=== PATIENT | female | born 1985 | race Caucasian/White ===

== ENCOUNTER 2016-03-25 09:38 | Emergency (ER) | payer MEDICAID ==
[~2016-03-25] VITALS: Wt 49.5 kg
--- NOTE | 2016-03-25 10:55 | ERD ---
ER Documentation Chief Complaint Date/Time DATE: 03/25/16 TIME: 10:52 Chief Complaint COUGH, SOB HPI 31-year-old otherwise healthy female presents to the emergency department for complaints of a one-week history of nonproductive cough which has been keeping her up at night. Patient also states that she is experiencing runny nose congestion and irritated throat. Although she states that this time her throat pain is a 0 out of 10. Patient does note that while trying to sleep at night she feels as if she has to take deep breaths. Patient denies any history of asthma and does not smoke. She has not attempted to treat her pain or symptoms of any sort of medication she notes that her son was recently sick with a upper respiratory infection. ROS All systems reviewed and are negative except as per history of present illness. PMhx/Soc History of Surgery: No Anesthesia Reaction: No Hx Neurological Disorder: No Hx Respiratory Disorders: No Hx Cardiac Disorders: No Hx Psychiatric Problems: No Hx Miscellaneous Medical Probl: No Hx Alcohol Use: No Hx Substance Use: No Hx Tobacco Use: No Smoking Status: Never smoker Physical Exam Vitals Vital Signs Date Time Temp Pulse Resp B/P Pulse Ox O2 Delivery O2 Flow Rate FiO2 03/25/16 09:39 96.1 89 18 165/84 100 Physical Exam Const: Well-developed, nontoxic-appearing, in no acute distress Head: Atraumatic Eyes: Normal Conjunctiva ENT: Tympanic membranes without evidence of erythema or swelling. Moist mucous membranes. Oropharynx mildly erythematous although clear without evidence of tonsillar swelling or exudate Neck: Full range of motion..~ No meningismus. Resp: Clear to auscultation bilaterally, no wheezes, rhonchi, rales Cardio: Regular rate and rhythm, no murmurs Abd: Soft, non tender, non distended. Normal bowel sounds Skin: No petechiae or rashes Back: No midline or flank tenderness Ext: No cyanosis, or edema Neur: Awake and alert Psych: Normal Mood and Affect Procedures/MDM The patient's clinical presentation is very consistent with an acute viral syndrome. The patient does not exhibit any clinical signs or symptoms concerning for serious bacterial infection or systemic illness. Based on history and clinical exam findings the patient does not appear to have evidence of pneumonia, strep pharyngitis, urinary tract infection, bacteremia, sepsis, or meningitis. For these reasons I do not believe it is necessary to obtain laboratory testing or diagnostic imaging. I believe it would be appropriate for symptom control, and close outpatient primary care follow-up. Patient will be provided with cough syrup as well as an albuterol inhaler. Patient to continue Motrin or Tylenol for throat discomfort. Based on patient's history of present illness and physical examination the decision was made to discharge. The patient was re-evaluated after ED treatment and stabilizing measures, and symptoms have improved. There is no evidence of life threatening injuries or illnesses at this time. On re-examination, patient resting in no distress, stable vital signs, reports feeling better and safe for discharge with outpatient follow up with PMD in 1-2 days. Patient given return precautions. ROBYN DSYON PA-C Mar 25, 2016 10:55
[2016-03-25] MEDS ORDERED: UDTYLC PO (10:58)
[2016-03-25] MEDS ORDERED: IBUP-1542 PO (10:58)
[2016-03-25] MEDS ORDERED: ALBU8.5H3 INH (10:58)
== END 2016-03-25 11:03 | disposition home or self-care (01) ==
LOC: FTE 09:38
DX: B34.9 Viral infection, unspecified (principal)

== ENCOUNTER 2016-12-16 21:38 | Emergency (ER) | payer SELFPAY ==
[~2016-12-16] VITALS: Ht 152.4 cm; Wt 47.5 kg
[~2016-12-16 21:38] MED LIST: ALBU8.5H3 INH; IBUP-1542 PO; UDTYLC PO
[2016-12-16 21:50] VITALS: Ht 152.4 cm; Wt 47.5 kg
[2016-12-16] MEDS ORDERED: ACETAMINOPHEN 500 MG TAB PO STA (23:03)
[2016-12-17 00:04] LABS: BASOPHILS % 0.2 % (0.0-2.0); EOSINOPHILS # 0.1 10^3/ul (0.0-0.5); LYMPHOCYTES # 2.6 10^3/ul (0.8-2.9); LYMPHOCYTES % 27.9 % (15.0-51.0); MEAN CORPUSCULAR HEMOGLOBIN 30.4 pg (29.0-33.0); MEAN CORPUSCULAR HGB CONC 33.3 g/dl (32.0-37.0); MEAN CORPUSCULAR VOLUME 91.1 fl (82.0-101.0); MEAN PLATELET VOLUME 9.9 fl (7.4-10.4); MONOCYTE # 0.7 10^3/ul (0.3-0.9); MONOCYTES % 7.4 % (0.0-11.0); NEUTROPHIL # 5.8 10^3/ul (1.6-7.5); NEUTROPHILS % 63.2 % (39.0-77.0); PLATELET COUNT 365 10^3/UL (140-415); RED BLOOD COUNT 3.95 10^6/ul (4.20-5.40); RED CELL DISTRIBUTION WIDTH 13.1 % (11.5-14.5); WHITE BLOOD COUNT 9.2 10^3/ul (4.8-10.8)
[2016-12-17 00:11] LABS: ADD UMIC NO; UR ASCORBIC ACID NEGATIVE (NEGATIVE); UR BILIRUBIN (Dip) NEGATIVE (NEGATIVE); UR BLOOD (Dip) NEGATIVE (NEGATIVE); UR CLARITY CLEAR (CLEAR); UR COLOR STRAW (YELLOW); UR GLUCOSE (Dip) NEGATIVE (NEGATIVE); UR KETONES (Dip) NEGATIVE (NEGATIVE); UR LEUKOCYTE ESTERASE (Dip) NEGATIVE Leu/ul (NEGATIVE); UR NITRITE (Dip) NEGATIVE (NEGATIVE); UR SPECIFIC GRAVITY (Dip) 1.004 (1.003-1.030); UR TOTAL PROTEIN (Dip) NEGATIVE (NEGATIVE); UR UROBILINOGEN (Dip) NEGATIVE (NEGATIVE)
[2016-12-17 00:22] LABS: ALBUMIN 4.1 g/dl (3.3-4.9); BILIRUBIN,INDIRECT 0.4 mg/dl (0-1.1); BILIRUBIN,TOTAL 0.4 mg/dl (0.2-1.3); CALCIUM 9.6 mg/dl (8.4-10.2); CREATININE 0.73 mg/dl (0.44-1.00); POTASSIUM 3.7 mmol/L (3.5-5.1); TOTAL PROTEIN 8.2 g/dl (6.1-8.1)
--- NOTE | 2016-12-17 02:28 | RADRPT ---
PROCEDURE: CT ABDOMEN/PELVIS WITHOUT CONTRAST CLINICAL INDICATION: 31-year-old female with abdominal pain. TECHNIQUE: The study was performed utilizing a [employer] VCT 64-slice CT scanner. Direct axia l sections were obtained through the abdomen and pelvis without the use of intravenous contrast mate rial. Sagittal and coronal reformations were obtained. One or more of the following dose reduction t echniques were utilized: automated exposure control, adjustment of the mA and/or kV according to pat ient's size or use of iterative reconstruction technique. The images were reviewed on a PACS workst [email or web address]. CTD/vol = 4.57 mGy; Total Exam DLP = 235.43 mGy-cm. COMPARISON: None. FINDINGS: The lung bases are unremarkable. There is no evidence for significant pleural effusion. The liver has a normal size and contour without focal areas of abnormal density. No intrahepatic nor extrahepa tic biliary ductal dilatation is seen. The gallbladder demonstrates no wall thickening nor perichole cystic fluid. No biliary stones are evident. The pancreas is without areas of abnormal attenuation. The spleen is identified and has a normal size without abnormal density. The adrenal glands are unr emarkable. The kidneys are without abnormal density. No hydroureteronephrosis nor nephroureterolithi asis is evident. The urinary bladder contains urine. There is air identified within the small bowel with distal fecalization. There is mild retained stool identified throughout the colon. The appendix is visualized and is without abnormal thickening or surrounding inflammatory reaction. The uterus i s anteflexed. There is no significant free fluid. The aortoiliac vessels are without aneurysmal dilatation. The osseous structures are intact. IMPRESSION: 1. No CT evidence for obstructive uropathy or renal calculi. 2. Air and fecalization within the small bowel as well as retained stool in the colon without gross bowel obstruction. 3. No CT evidence for appendicitis. .Yoandy Dye MD, Date Time Electronically viewed and signed by .Yoandy Dye MD, on 12/17/2016 02:28 .Agata
[2016-12-17] MEDS ORDERED: ONDA4TAB14 PO (02:47)
[2016-12-17] MEDS ORDERED: MAGN296S40 PO (02:47)
[2016-12-17] MEDS ORDERED: ACET500C5 PO (02:47)
--- NOTE | 2016-12-17 03:03 | ERD ---
ER Documentation Chief Complaint Date/Time DATE: 12/17/16 TIME: 02:55 Chief Complaint rlq abd pain with n/v started today HPI 31-year-old female complaining of right lower quadrant abdominal pain since yesterday. The pain is intermittent, occurring every 2-3 hours, lasting about 5 -10 minutes each. Patient described pain as dull, feels like someone is pushing on her stomach, 5 out of 10 in intensity. She also had 6 or 7 episodes of vomiting today, but able to maintain fluid intake. Denies fever or chills. Denies dysuria. Denies diarrhea. Patient reports daily bowel movement, however with very small amount of stool each time. LMP was 11/30/2016. ROS All systems reviewed and are negative except as per history of present illness. Medications Home Meds Active Scripts Magnesium Citrate* (Magnesium Citrate*) 296 Ml Solution, 296 ML PO ONCE, #1 BOTTLE Prov:SIGRID HOWARD NP 12/17/16 Ondansetron (Ondansetron Odt) 4 Mg Tab.rapdis, 4 MG PO Q6H Y for NAUSEA AND/OR VOMITING, #10 TAB Prov:SIGRID HOWARD NP 12/17/16 Acetaminophen* (Tylophen*) 500 Mg Capsule, 1 CAP PO Q6H Y for PAIN AND OR ELEVATED TEMP, #20 CAP Prov:SIGRID HOWARD NP 12/17/16 Acetaminophen-Codeine* (Tylenol-Codeine* Liq) [id number] Elix, 5 ML PO QHS for 7 Days, ML Prov:ROBYN DYSON PA-C 03/25/16 Albuterol Sulfate* (Proair HFA*) 8.5 Gm Hfa.aer.ad, 2 PUFF INH Q4H Y for WHEEZING AND SOB, #1 INHALER Prov:ROBYN DYSON PA-C 03/25/16 Ibuprofen* (Motrin*) 600 Mg Tab, 600 MG PO Q6H Y for PAIN AND OR ELEVATED TEMP, #30 TAB Prov:ROBYN DYSON PA-C 03/25/16 PMhx/Soc Medical and Surgical Hx: pt denies Medical Hx History of Surgery: No Anesthesia Reaction: No Hx Neurological Disorder: No Hx Respiratory Disorders: No Hx Cardiac Disorders: No Hx Psychiatric Problems: No Hx Miscellaneous Medical Probl: No Hx Alcohol Use: No Hx Substance Use: No Hx Tobacco Use: No Smoking Status: Never smoker Physical Exam Vitals Vital Signs Date Time Temp Pulse Resp B/P Pulse Ox O2 Delivery O2 Flow Rate FiO2 12/16/16 21:50 99.8 108 20 130/88 98 Physical Exam General: Well-developed, well-nourished, conscious and coherent, in no distress Skin: Warm and dry without rash, good texture and turgor Head: Normocephalic without evidence of trauma Eyes: Sclera and conjunctivae normal; pupils equal, round, and reactive to light; extraocular movements are intact Chest: Normal AP diameter. Good expansion without retractions. Nontender. Lungs are clear to auscultate bilaterally with good tidal volume Heart: Regular rate and rhythm. No murmur, rub, or gallops heard Abdomen: Soft. Right lower quadrant tenderness without masses, guarding, or rebound. Bowel sounds are hyperactive. No hepatosplenomegaly Back: Without spinal or CVA tenderness Extremities: Full range of motion. Good strength bilaterally. No clubbing, cyanosis, or edema. Peripheral pulses are intact. Sensation intact Neuro: Alert and oriented 4, GCS 15. Cranial nerves grossly intact. Motor and sensory exams nonfocal. Moves all extremities. Speech clear. Gait normal Result Diagram: 12/16/16 2335 12/16/16 2335 Results 24 hrs Laboratory Tests Test 12/16/16 23:11 12/16/16 23:35 Urine Color STRAW Urine Clarity CLEAR Urine pH 8.0 Urine Specific [place] 1.004 Urine Ketones NEGATIVEmg/dL Urine Nitrite NEGATIVEmg/dL Urine Bilirubin NEGATIVEmg/dL Urine Urobilinogen NEGATIVEmg/dL Urine Leukocyte Esterase NEGATIVELeu/ul Urine Hemoglobin NEGATIVEmg/dL Urine Glucose NEGATIVEmg/dL Urine Total Protein NEGATIVEmg/dl Urine Test NEGATIVE White Blood Count 9.210^3/ul Red Blood Count 3.9510^6/ul Hemoglobin 12.0g/dl Hematocrit 36.0% Mean Corpuscular Volume 91.1fl Mean Corpuscular Hemoglobin 30.4pg Mean Corpuscular Hemoglobin Concent 33.3g/dl Red Cell Distribution Width 13.1% Platelet Count 93591^3/UL Mean Platelet Volume 9.9fl Neutrophils % 63.2% Lymphocytes % 27.9% Monocytes % 7.4% Eosinophils % 1.0% Basophils % 0.2% Nucleated Red Blood Cells % 0.0/100WBC Neutrophils # 5.810^3/ul Lymphocytes # 2.610^3/ul Monocytes # 0.710^3/ul Eosinophils # 0.110^3/ul Basophils # 0.010^3/ul Nucleated Red Blood Cells # 0.010^3/ul Sodium Level 139mmol/L Potassium Level 3.7mmol/L Chloride Level 105mmol/L Carbon Dioxide Level 27mmol/L Anion Gap 11 Blood Urea Nitrogen 7mg/dl Creatinine 0.73mg/dl Glucose Level 106mg/dl Calcium Level 9.6mg/dl Total Bilirubin 0.4mg/dl Direct Bilirubin 0.00mg/dl Indirect Bilirubin 0.4mg/dl Aspartate Amino Transf (AST/SGOT) 30IU/L Alanine Aminotransferase (ALT/SGPT) 44IU/L Alkaline Phosphatase 71IU/L Total Protein 8.2g/dl Albumin 4.1g/dl Globulin 4.10g/dl Albumin/Globulin Ratio 1.00 Lipase 193U/L Current Medications Medications (Trade) Dose Ordered Sig/Diego Route PRN Reason Start Time Stop Time Status Last Admin Dose Admin Acetaminophen (Tylenol Tab) 500 mg ONCE STAT PO 12/16/16 23:03 12/16/16 23:07 DC 12/16/16 23:45 PROCEDURE: CT ABDOMEN/PELVIS WITHOUT CONTRAST CLINICAL INDICATION: 31-year-old female with abdominal pain. TECHNIQUE: The study was performed utilizing a GE [employer]peed VCT 64-slice CT scanner. Direct axial sections were obtained through the abdomen and pelvis without the use of intravenous contrast material. Sagittal and coronal reformations were obtained. One or more of the following dose reduction techniques were utilized: automated exposure control, adjustment of the mA and/ or kV according to patient's size or use of iterative reconstruction technique. The images were reviewed on a PACS workstation. CTD/vol = 4.57 mGy; Total Exam DLP = 235.43 mGy-cm. COMPARISON: None. FINDINGS: The lung bases are unremarkable. There is no evidence for significant pleural effusion. The liver has a normal size and contour without focal areas of abnormal density. No intrahepatic nor extrahepatic biliary ductal dilatation is seen. The gallbladder demonstrates no wall thickening nor pericholecystic fluid. No biliary stones are evident. The pancreas is without areas of abnormal attenuation. The spleen is identified and has a normal size without abnormal density. The adrenal glands are unremarkable. The kidneys are without abnormal density. No hydroureteronephrosis nor nephroureterolithiasis is evident. The urinary bladder contains urine. There is air identified within the small bowel with distal fecalization. There is mild retained stool identified throughout the colon. The appendix is visualized and is without abnormal thickening or surrounding inflammatory reaction. The uterus is anteflexed. There is no significant free fluid. The aortoiliac vessels are without aneurysmal dilatation. The osseous structures are intact. IMPRESSION: 1. No CT evidence for obstructive uropathy or renal calculi. 2. Air and fecalization within the small bowel as well as retained stool in the colon without gross bowel obstruction. 3. No CT evidence for appendicitis. .Yoandy Dye MD, Date Time Electronically viewed and signed by .Yoandy Dye MD, on 12/17/2016 02:28 .M/ CC: SIGRID HOWARD CONTACT LENS TECHNICIAN Procedures/MDM Well-appearing 31-year-old female presented ED with intermittent right lower quadrant abdominal pain 1 day. CBC, CMP, lipase, and UA are all unremarkable. CT abdomen and pelvis without IV contrast was obtained. CT is negative for appendicitis or obstructive uropathy or renal calculi. Air and fecal isolation within the small bowel as well as retained stool in the colon without gross bowel obstruction was also noted on CT. is uncertain the cause of patient's abdominal pain and vomiting at this time. It is possible that her symptoms is due to retained stool in the bowel. I will provide her with prescription of magnesium citrate single dose to help her empty the bowel. She is given Tylenol and Zofran in the ED. Patient reports resolution of her abdominal pain and vomiting after the medication. Patient advised to return to ED in 8-10 hours for recheck. Patient appears well, stable for discharge and outpatient management. Medical decision making shared with patient and family. Education provided to patient and family. Patient and family expressed understanding of the plan. Medications on discharge: Tylenol, Zofran, magnesium citrate. Follow-up: Primary care provider in 2-3 days or return to ED if worse. The case was reviewed and discussed with Dr. Arango, who agrees with the plan of care including labs, treatment, and advanced imaging as appropriate. Disclaimer: Inadvertent spelling and grammatical errors are likely due to EHR/ dictation software use and do not reflect on the overall quality of patient care. Also, please note that the electronic time recorded on this note does not necessarily reflect the actual time of the patient encounter. Departure Diagnosis: Primary Impression: Abdominal pain Abdominal location: right lower quadrant Qualified Code: R10.31 - Right lower quadrant abdominal pain Additional Impression: Vomiting Vomiting type: unspecified Vomiting Intractability: non-intractable Nausea presence: unspecified Qualified Code: R11.10 - Non-intractable vomiting, presence of nausea not specified, unspecified vomiting type Condition: Stable Patient Instructions: Abdominal Pain, Vomiting (6Y-Adult) Referrals: [facility] YOU HAVE RECEIVED A MEDICAL SCREENING EXAM AND THE RESULTS INDICATE THAT YOU DO NOT HAVE A CONDITION THAT REQUIRES URGENT TREATMENT IN THE EMERGENCY DEPARTMENT. FURTHER EVALUATION AND TREATMENT OF YOUR CONDITION CAN WAIT UNTIL YOU ARE SEEN IN YOUR DOCTORS OFFICE WITHIN THE NEXT 1-2 DAYS. IT IS YOUR RESPONSIBILITY TO MAKE AN APPOINTMENT FOR FOLOW-UP CARE. IF YOU HAVE A PRIMARY DOCTOR --you should call your primary doctor and schedule an appointment IF YOU DO NOT HAVE A PRIMARY DOCTOR YOU CAN CALL OUR PHYSICIAN REFERRAL HOTLINE AT IF YOU CAN NOT AFFORD TO SEE A PHYSICIAN YOU CAN CHOSE FROM THE FOLLOWING PSYCHIATRIC HOSPITAL CLINICS [facility] [address] [facility] [address] [facility] [address] [facility] [address] [facility] [address] [facility]. [facility]. [address] Additional Instructions: Return to ED in 8-10 hours for recheck. SIGRID HOWARD NP Dec 17, 2016 03:03
== END 2016-12-17 03:00 | disposition home or self-care (01) ==
LOC: FTE 21:38
DX: R10.31 Right lower quadrant pain (principal); R11.10 Vomiting, unspecified; R10.2 Pelvic and perineal pain
CPT/HCPCS: 36415; 74176; 80053; 81003; 83690; 84703; 85025

== ENCOUNTER 2018-06-14 03:18 | Outpatient (CLI) | payer OTHER ==
[~2018-06-14] VITALS: Ht 142.2 cm; Wt 55.8 kg
[~2018-06-14 03:18] MED LIST changes: +ACET500C5 PO; -ALBU8.5H3 INH; +ALBU8.5H8 INH; +MAGN296S40 PO; +ONDA4TAB14 PO
[2018-06-14 03:35] VITALS: Ht 142.2 cm; Wt 55.8 kg
[2018-06-14 03:36] VITALS: BP 116/84; PULSE 78; RESP 16
[2018-06-14] MEDS ORDERED: PREN1TAB13 PO (03:39)
--- NOTE | 2018-06-14 06:48 | PN ---
Triage Information Date/Time 06/14/18 Reason for visit: Uterine contractions Weeks of Gestation 39w2d /Para Diabetes: none Hypertention: none Objective Vital Signs Date Temp Pulse Resp B/P (MAP) Pulse Ox O2 O2 Flow FiO2 Time Delivery Rate 06/14/18 98.2 78 16 116/84 Room Air 03:36 (95) Heart Rate: 150's Heart Rate Comments CAT 1 Contractions: < 5 Minutes Apart Exam /-2 re cked in more than 2hrs no change cervix posterior and firm Results/Medications Results 24 hrs Laboratory Tests Test 06/14/18 04:45 Urine Color YELLOW Urine Clarity CLEAR Urine pH 6.0 Urine Specific [place] 1.015 Urine Ketones NEGATIVE Urine Nitrite NEGATIVE Urine Bilirubin NEGATIVE Urine Urobilinogen NEGATIVE Urine Leukocyte Esterase NEGATIVE Urine Hemoglobin NEGATIVE Urine Glucose NEGATIVE Urine Total Protein NEGATIVE Imaging Results BPP 10/29 LUL 12.6 EFW 3046gm Disposition: Discharge Assessment/Plan A IUP 39w2d latent phase P discharge home with routine labor instructions ROGER ESQUIVEL MD Jun 14, 2018 06:48
--- NOTE | 2018-06-14 07:53 | TRIAGE ---
OB Triage Datetime Report Generated by CPN: 06/14/2018 07:53 Datetime: 06/14/2018 06:40 Stage of : OB Triage Datetime: 06/14/2018 06:33 Stage of : OB Triage Labor Evaluation Frequency: 2-7 Monitor Mode: External Duration (sec)2399: 60-150 Quality: Mild Pattern: Normal: <= 5 Contractions in 10 Minutes Resting Tone [place]: Relaxed Heart Rate FHR Baseline Rate: 145 Monitor Mode: External US Variability: Moderate 6-25 bpm Accelerations: 15X15 Decelerations: None Category: Category I Datetime: 06/14/2018 06:15 Vaginal Exam Dilatation (cms): 1.0 Effacement (%): 50 Station: -2 Exam By: Julia CROWE Vaginal Bleeding: None Cervix, Consistency: Moderate Cervix, Position: Posterior Datetime: 06/14/2018 06:04 Monitor Mode: External Contraction Comments: applied Monitor Mode: External US Comments: applied Datetime: 06/14/2018 04:09 Time of Arrival: 06/14/2018 03:05 EGA: 39.2 Arrived By: Ambulatory Arrived From: Home Chief Complaint: UC'S SINCE 0000 Movement: Present Contractions: Regular Time Contractions Began: 06/14/2018 00:00 Contractions: 2-5 Rupture of Membranes: Denies Vaginal Bleeding: None Vaginal Discharge: Denies Recent Sexual Intercouse: Denies Abdominal Trauma: Not Applicable Patient Complaints: Contractions Time Provider Notified: 06/14/2018 03:45 Provider Notified: DR. ESQUIVEL Initial Plan: EFM, SVE, CALL OB Datetime: 06/14/2018 03:45 Stage of : OB Triage Labor Evaluation Frequency: 2-4.5 Monitor Mode: External Duration (sec)2399: 60-90 Quality: Moderate Pattern: Normal: <= 5 Contractions in 10 Minutes Resting Tone [place]: Relaxed Heart Rate FHR Baseline Rate: 135 Monitor Mode: External US Variability: Moderate 6-25 bpm Accelerations: 15X15 Decelerations: None Category: Category I Datetime: 06/14/2018 03:40 Vaginal Exam Dilatation (cms): 1.0 Effacement (%): 50 Station: -2 Exam By: Julia MAHANAMRITA Membrane Status: Intact Vaginal Bleeding: None Cervix, Consistency: Firm Cervix, Position: Posterior Datetime: 06/14/2018 03:20 Stage of : OB Triage Maternal Assessment Level of Consciousness: Fully Conscious DTR's/Clonus: DTRs 2+; No Clonus Headache: Denies Blurred Vision: No Respiratory Effort: Unlabored; Regular Rhythm; Equal Expansion Breath Sounds, Left: Clear and Equal Breath Sounds, Right: Clear and Equal Nausea/Vomiting: Denies RUQ Epigastric Pain: Denies Lower Extremities Edema: None Degree: None Upper Extremities Edema: None Degree: None Facial Edema: None Temperature Route: Oral Fall Risk Assessment History of Falling: (0) No Secondary Diagnosis: (0) No Ambulatory Aid: (0) Bedrest/Nurse Assist IV Therapy: (0) No Gait: (0) Normal/Bedrest/Immobile Mental Status: (0) Oriented to Own Ability Fall Score: 0 Fall Risk Score Definition: No Risk: No action required Pain Assessment Pain Scale: 7 Pain Presence: Intermittent Pain Type: Contraction Pain Location: Abdomen Pain Relief Measures: Comfort Measures Datetime: 06/14/2018 03:19 Monitor Mode: External Contraction Comments: APPLIED Monitor Mode: External US Comments: APPLIED
== END 2018-06-14 06:50 | disposition home or self-care (01) ==
LOC: L-D 03:18 → OBT 03:18
PROVIDERS: ATTEND Obstetrics & Gynecology
DX: O62.9 Abnormality of forces of labor, unspecified (principal); Z3A.39 39 weeks gestation of pregnancy
CPT/HCPCS: 76815; 76818; 81003; Z7500; G0463

== ENCOUNTER 2018-06-14 21:24 | Inpatient (IN) | payer OTHER ==
[~2018-06-14] VITALS: Ht 149.9 cm; Wt 53.9 kg
[~2018-06-14 21:24] MED LIST changes: +PREN1TAB13 PO
[2018-06-14 21:32] VITALS: BP 113/75; PULSE 77; RESP 16
[2018-06-14] MEDS ORDERED: LACTATED RINGER'S 1,000 ML IV SCH (21:47)
[2018-06-14] MEDS ORDERED: BUTORPHANOL 2 MG INJ IV PRN (22:00)
[2018-06-14] MEDS ORDERED: IBUPROFEN 600 MG TAB PO PRN (22:00)
[2018-06-14] MEDS ORDERED: CARBOPROST 250 MCG INJ IM PRN (22:00)
[2018-06-14] MEDS ORDERED: OXYTOCIN 30 UNITS/LR 500 ML IV SCH ×2 (22:00)
[2018-06-14] MEDS ORDERED: METHYLERGONOVINE 0.2 MG INJ IM PRN (22:00)
[2018-06-14] MEDS ORDERED: LIDOCAINE 1% (MPF) 30 ML INJ INJ PRN (22:00)
[2018-06-14] MEDS ORDERED: OXYTOCIN 30 UNITS/LR 500 ML IV PRN (22:00)
[2018-06-14] MEDS ORDERED: MISOPROSTOL 200 MCG TAB PR PRN (22:00)
[2018-06-14] MEDS ORDERED: LACTATED RINGER'S 1,000 ML IV PRN (22:03)
--- NOTE | 2018-06-14 22:03 | TRIAGE ---
OB Triage Datetime Report Generated by CPN: 06/14/2018 22:03 Datetime: 06/14/2018 22:00 Frequency: 5 Monitor Mode: External Duration (sec)2399: 70-100 Quality: Moderate Pattern: Normal: <= 5 Contractions in 10 Minutes Resting Tone [place]: Relaxed FHR Baseline Rate: 150 Monitor Mode: External US FHR Baseline Changes: No Baseline Change Variability: Moderate 6-25 bpm Accelerations: 15X15 Decelerations: None Category: Category I Datetime: 06/14/2018 21:36 Dilatation (cms): 3.0 Effacement (%): 100 Station: -2 Exam By: ITZEL Vaginal Bleeding: None Cervix, Consistency: Soft Cervix, Position: Posterior Presentation 'A': Cephalic Datetime: 06/14/2018 21:35 Stage of : OB Triage Level of Consciousness: Fully Conscious DTR's/Clonus: DTRs 2+; No Clonus Headache: Denies Blurred Vision: No Respiratory Effort: Unlabored; Regular Rhythm; Equal Expansion Breath Sounds, Left: Clear and Equal Breath Sounds, Right: Clear and Equal Nausea/Vomiting: Denies RUQ Epigastric Pain: Denies Facial Edema: None Temperature Route: Axillary History of Falling: (0) No Secondary Diagnosis: (0) No Ambulatory Aid: (0) Bedrest/Nurse Assist IV Therapy: (0) No Gait: (0) Normal/Bedrest/Immobile Mental Status: (0) Oriented to Own Ability Fall Score: 0 Fall Risk Score Definition: No Risk: No action required Datetime: 06/14/2018 21:34 Time of Arrival: 06/14/2018 21:30 EGA: 39.2 Arrived By: Ambulatory Arrived From: Home Chief Complaint: uc's Movement: Present Contractions: Irregular Time Contractions Began: 06/14/2018 19:00 Rupture of Membranes: Denies Vaginal Bleeding: None Vaginal Discharge: Denies Recent Sexual Intercouse: Denies Abdominal Trauma: Not Applicable Patient Complaints: Contractions Time Provider Notified: 06/14/2018 21:40 Provider Notified: Initial Plan: EFM, VE, admit to L_D Datetime: 06/14/2018 21:31 Frequency: X1 Monitor Mode: External Duration (sec)2399: 50 Quality: Moderate Pattern: Normal: <= 5 Contractions in 10 Minutes Resting Tone [place]: Relaxed FHR Baseline Rate: 145 Monitor Mode: External US FHR Baseline Changes: No Baseline Change Variability: Moderate 6-25 bpm Accelerations: 15X15 Decelerations: None Category: Category I Datetime: 06/14/2018 04:09 EGA: 39.2 Datetime: 06/14/2018 03:20 Fall Score: 0 Fall Risk Score Definition: No Risk: No action required
--- NOTE | 2018-06-14 22:40 | PREAC ---
Date/Time of Note Date/Time of Note DATE: 06/14/18 TIME: 22:39 Anesthesia Eval and Record Evaluation Time Pre-Procedure Interview DATE: 06/14/18 TIME: 22:39 Age 33 Sex female NPO: 8 hrs Preoperative diagnosis labor pain Planned procedure epidural Past Medical History Past Medical History: Includes : Gestational age: (39) Surgery & Anesthesia Issues No known issue Meds Anticoagulation: No Beta Tristen within 24 hr: No Reason Beta Tristen not given: Pt. not on B-Tristen Reported Medications Pnv95/Ferrous Fumarate/FA ( Vitamins Tablet) 1 Each Tablet, 1 EACH PO, TAB 06/14/18 Discontinued Scripts Magnesium Citrate* (Magnesium Citrate*) 296 Ml Solution, 296 ML PO ONCE, #1 BOTTLE Prov:SIGRID HOWARD [employer] 12/17/16 Ondansetron (Ondansetron Odt) 4 Mg Tab.rapdis, 4 MG PO Q6H PRN for NAUSEA AND/OR VOMITING, #10 TAB Prov:SIGRID HOWARD NP 12/17/16 Acetaminophen* (Tylophen*) 500 Mg Capsule, 1 CAP PO Q6H PRN for PAIN AND OR ELEVATED TEMP, #20 CAP Prov:SIGRID HOWARD NP 12/17/16 Acetaminophen-Codeine* (Tylenol-Codeine* Liq) [id number] Elix, 5 ML PO QHS for 7 Days, ML Prov:ROBYN DYSON PA-C 03/25/16 Albuterol Sulfate* (Proair HFA*) 8.5 Gm Hfa.aer.ad, 2 PUFF INH Q4H PRN for WHEEZING AND SOB, #1 INHALER Prov:ROBYN DYSON PA-C 03/25/16 Ibuprofen* (Motrin*) 600 Mg Tab, 600 MG PO Q6H PRN for PAIN AND OR ELEVATED TEMP, #30 TAB Prov:ROBYN DYSON PA-C 03/25/16 Current Medications Lactated Ringer's 1,000 ml @ 125 mls/hr Q8H IV Last administered on 06/14/18at 22:03; Admin Dose 125 MLS/HR; Start 06/14/18 at 21:47 Butorphanol Tartrate (Stadol) 2 mg Q2H PRN IV .PAIN; Start 06/14/18 at 22:00 Lidocaine (Xylocaine 1% (Mpf)) 30 ml ONCE PRN INJ .EPISIOTOMY; Start 06/14/18 at 22:00 Oxytocin/Lactated Ringer's 500 ml @ 500 mls/hr ONCE POST IV ; Start 06/14/18 at 22:00 Oxytocin/Lactated Ringer's 500 ml @ 125 mls/hr POST IV ; Start 06/14/18 at 22:00 Ibuprofen (Motrin) 600 mg ONCE PRN PO .PAIN 1-5; Start 06/14/18 at 22:00 Oxytocin/Lactated Ringer's 500 ml @ 0 mls/hr ONCE PRN IV .VAGINAL BLEEDING; Start 06/14/18 at 22:00 Methylergonovine Maleate (Methergine) 0.2 mg ONCE PRN IM .VAGINAL BLEEDING; Start 06/14/18 at 22:00 Carboprost Tromethamine (Hemabate) 250 mcg ONCE PRN IM .VAGINAL BLEEDING; Start 06/14/18 at 22:00 Misoprostol (Cytotec) 1,000 mcg ONCE PRN [place] .VAGINAL BLEEDING; Start 06/14/18 at 22:00 Lactated Ringer's 1,000 ml @ 2,000 mls/hr Q30M PRN IV .ANESTHESIA; Start 06/14/18 at 22:03 Meds reviewed: Yes Allergies Coded Allergies: No Known Allergy (Unverified , 06/14/18) Allergies Reviewed: Yes Labs/Studies Labs Reviewed: Reviewed by anesthesiologist Result Diagram: 06/14/18 2159 Laboratory Tests 06/14/18 21:55 Blood Bank Test 06/14/18 21:55 Blood Type A POSITIVE Rh Immune Globulin Candidate NO test: Positive Studies: ECG (n/a), CXR (n/a) Pre-procedure Exam Last vitals Vital Signs Date Temp Pulse Resp B/P (MAP) Pulse Ox O2 O2 Flow FiO2 Time Delivery Rate 06/14/18 99.5 77 16 113/75 Room Air 21:32 (88) Airway: Adequate mouth opening Mallampati: Mallampati I Teeth: Normal Lung: Normal Heart: Normal ASA Physical Status ASA physical status: 5 Emergency: None Planned Anesthetic Neuraxial: Epidural Pre-operative Attestations Prior to commencing anesthesia and surgery, the patient was re-evaluated, there was verification of: *The patient's identity *The results of appropriate recent lab work and preoperative vital signs *The above evaluation not changing prior to induction *Anesthetic plan, risk benefits, alternative and complications discussed with patient/family; questions answered; patient/family understands, accepts and wishes to proceed. GALINA CINTRON MD Jun 14, 2018 22:40
[2018-06-14 22:42] VITALS: Ht 149.9 cm; Wt 53.9 kg
[2018-06-14] MEDS ORDERED: FENTAnyl 2MCG/ML-ROPIV 0.2% 100 ML ONE (22:55)
[2018-06-14] MEDS ORDERED: NALOXONE (0.4 MG/ML) INJ IV PRN (23:00)
[2018-06-14] MEDS ORDERED: FENTAnyl 2MCG/ML-ROPIV 0.2% 100 ML BAG EPI SCH (23:00)
[2018-06-15] MEDS: OXYTOCIN 30 UNITS/LR 500 ML IV SCH ×2 (02:35→06:45)
[2018-06-15] MEDS: LACTATED RINGER'S 1,000 ML IV* SCH ×3 (02:35→18:35)
--- NOTE | 2018-06-15 02:39 | LDN ---
Date/Time of Note Date/Time of Note DATE: 06/15/18 TIME: 02:37 Delivery Summary of a viable baby boy weighing 2755 grams or 6# 1 oz, 18" long, and with Apgars of 8/9. Weeks of Gestation 39w 3d Placenta Delivered: Spontaneously Meconium: none Episiotomy: No Perineal laceration: 0 Anesthesia type: Epidural Estimated blood loss: 150 Sponge & Needle done & correct: Yes All needle counts correct: Yes Any foreign bodies felt in the: No (vagina) Infant Delivery Information Sex Sex: male Apgars 1 Minute: 8 5 Minute: 9 Suctioning Nose & mouth suctioned at archana: Yes Delee suction performed: No Umbilical Cord Umbilical cord with: 3 Vessels Cord presentations: nuchal cord Nuchal cord present X: 2 Cord Blood was obtained: Yes Mother & Baby Disposition Disposition Mom & Baby to Maternity; Good: Yes Baby to NICU: No JANES IVY MD Jun 15, 2018 02:39
--- NOTE | 2018-06-15 02:44 | HP ---
Date/Time of Note Date/Time of Note DATE: 06/15/18 TIME: 02:40 OB - History Hx of Present Free Text/Dictation 32 y.o. with an IUP at 39w 2d came in actived labor with a cervical exam of 100% effaced and 3 cm and she progressed in labor on her own. Chief Complaint: Labor Estimated Due Date: Jun 19, 2018 : 3 Para: 2 Care: Good Care Ultrasounds: Normal mid trimester US (per pt) Obstetrical Complications: None Medical Complications: None Other Concerns: x 2 prior. Past Family/Social History * Past Medical, Surgical, Family and Obstetric Histories reviewed with pt as her prenatals were not available. Blood Type: Unknown Rubella: unknown RPR/VDRL: Unknown GBS Status: Negative HBsAG: Unknown OB Admission Exam Vital Signs Vital Signs Vital Signs Date Temp Pulse Resp B/P (MAP) Pulse Ox O2 O2 Flow FiO2 Time Delivery Rate 06/14/18 99.5 77 16 113/75 Room Air 21:32 (88) Physical Exam HEENT: WNL Heart: Rhythm Normal Lungs: Clear Abdomen: WNL Extremities: Normal Cervical Dilatation: 3cm Effacement: 100% Station: -2 Membranes: Intact Amniotic Fluid: Clear Heart Rate: 140's Accelerations: Accelerations Present Decelerations: No Decelerations Varibility: Moderate Contractions on Admission: 6-10 Minutes Apart Intensity: Moderate Last 72 hours Lab Results CBC & BMP 06/14/18 21:55 OB Assessment/Plan Reason for admission: active labor Plan: Expectant Management JANES IVY MD Jun 15, 2018 02:44
[2018-06-15] MEDS ORDERED: MISOPROSTOL 200 MCG TAB PR PRN (03:00)
[2018-06-15] MEDS ORDERED: CARBOPROST 250 MCG INJ IM PRN (03:00)
[2018-06-15] MEDS ORDERED: HYDROCODONE/APAP (5/325) TAB PO PRN (03:00)
[2018-06-15] MEDS ORDERED: METHYLERGONOVINE 0.2 MG INJ IM PRN (03:00)
[2018-06-15] MEDS ORDERED: OXYTOCIN 30 UNITS/LR 500 ML IV PRN (03:00)
[2018-06-15] MEDS ORDERED: LANOLIN HPA 1 PKT TOP PRN (03:00)
[2018-06-15 05:46] VITALS: BP 114/71; PULSE 65; RESP 20
[2018-06-15] MEDS: IBUPROFEN 600 MG TAB PO SCH ×3 (06:41→17:35)
[2018-06-15 08:00] VITALS: BP 118/60; PULSE 55; RESP 20
--- NOTE | 2018-06-15 08:12 | DS ---
Date/Time of Note Date/Time of Note DATE: 06/15/18 TIME: 08:11 Discharge Summary Admission/Discharge Info Admit Date/Time Jun 14, 2018 at 21:45 Discharge Date/Time Discharge Diagnosis term Patient Condition: Stable Hospital Course unremarkable Home Meds Reported Medications Pnv95/Ferrous Fumarate/FA ( Vitamins Tablet) 1 Each Tablet, 1 EACH PO, TAB 06/14/18 Discontinued Scripts Magnesium Citrate* (Magnesium Citrate*) 296 Ml Solution, 296 ML PO ONCE, #1 BOTTLE Prov:SIGRID HOWARD NP 12/17/16 Ondansetron (Ondansetron Odt) 4 Mg Tab.rapdis, 4 MG PO Q6H PRN for NAUSEA AND/OR VOMITING, #10 TAB Prov:SIGRID HOWARD NP 12/17/16 Acetaminophen* (Tylophen*) 500 Mg Capsule, 1 CAP PO Q6H PRN for PAIN AND OR ELEVATED TEMP, #20 CAP Prov:SIGRID HOWARD NP 12/17/16 Acetaminophen-Codeine* (Tylenol-Codeine* Liq) [id number] Elix, 5 ML PO QHS for 7 Days, ML Prov:ROBYN DYSON PA-C 03/25/16 Albuterol Sulfate* (Proair HFA*) 8.5 Gm Hfa.aer.ad, 2 PUFF INH Q4H PRN for WHEEZING AND SOB, #1 INHALER Prov:ROBYN DYSON PA-C 03/25/16 Ibuprofen* (Motrin*) 600 Mg Tab, 600 MG PO Q6H PRN for PAIN AND OR ELEVATED TEMP, #30 TAB Prov:ROBYN DYSON PA-C 03/25/16 Primary Care Provider Not On Staff Doctor Pending Labs Laboratory Tests Test 06/14/18 21:55 White Blood Count 7.9 10^3/ul (4.8-10.8) Red Blood Count 3.87 10^6/ul (4.20-5.40) Hemoglobin 10.4 g/dl (12.0-16.0) Hematocrit 32.4 % (37.0-47.0) Mean Corpuscular Volume 83.7 fl (82.0-101.0) Mean Corpuscular Hemoglobin 26.9 pg (29.0-33.0) Mean Corpuscular Hemoglobin Concent 32.1 g/dl (32.0-37.0) Red Cell Distribution Width 16.5 % (11.5-14.5) Platelet Count 368 10^3/UL (140-415) Mean Platelet Volume 10.2 fl (7.4-10.4) Immature Granulocytes % 0.400 % (0.001-0.429) Neutrophils % 64.2 % (39.0-77.0) Lymphocytes % 25.5 % (15.0-51.0) Monocytes % 9.3 % (0.0-11.0) Eosinophils % 0.3 % (0.0-7.0) Basophils % 0.3 % (0.0-2.0) Nucleated Red Blood Cells % 0.0 /100WBC (0.0-0.0) Immature Granulocytes # 0.030 10^3/ul (0.0-0.031) Neutrophils # 5.1 10^3/ul (1.6-7.5) Lymphocytes # 2.0 10^3/ul (0.8-2.9) Monocytes # 0.7 10^3/ul (0.3-0.9) Eosinophils # 0.0 10^3/ul (0.0-0.5) Basophils # 0.0 10^3/ul (0.0-0.1) Nucleated Red Blood Cells # 0.0 10^3/ul (0.0-0.0) Prothrombin Time 11.8 Sec (11.9-14.9) Prothrombin Time Ratio 0.9 INR International Normalized Ratio 0.86 Activated Partial Thromboplast Time 23.7 Sec (23.0-35.0) CATARINO HORNE MD Jun 15, 2018 08:11
--- NOTE | 2018-06-15 09:12 | PAC ---
Date/Time of Note Date/Time of Note DATE: 06/15/18 TIME: 09:12 Post-Anesthesia Notes Post-Anesthesia Note Last documented vital signs Vital Signs Date Temp Pulse Resp B/P (MAP) Pulse Ox O2 O2 Flow FiO2 Time Delivery Rate 06/15/18 99.0 55 20 118/60 99% Room Air 08:00 (79) Activity: WNL Respiratory function: WNL Cardiovascular function: WNL Mental status: Baseline Pain reasonably controlled: Yes Hydration appropriate: Yes Nausea/Vomiting absent: No GALINA CINTRON MD Jun 15, 2018 09:12
[2018-06-15 12:00] VITALS: BP 90/56; PULSE 63; RESP 18
[2018-06-15 15:50] VITALS: BP 102/51; PULSE 63; RESP 18
[2018-06-16] MEDS: IBUPROFEN 600 MG TAB PO SCH ×3 (00:01→12:31)
[2018-06-16] MEDS: LACTATED RINGER'S 1,000 ML IV* SCH ×2 (02:35→10:35)
[2018-06-16 04:00] VITALS: BP 121/69; PULSE 86; RESP 19
[2018-06-16 08:01] VITALS: BP 109/62; PULSE 53; RESP 19
[2018-06-16] MEDS ORDERED: DIPHTH/TET/ACEL PERTUSS (ADULT) 0.5 ML VIAL IM* ONE (10:30)
--- NOTE | 2018-06-16 12:13 | QN ---
Documentation Comment doing well vss abd soft d/c home today CATARINO HORNE MD Jun 16, 2018 12:13
--- NOTE | 2018-06-17 14:58 | DELSUM ---
Delivery Summary A-C Datetime Report Generated by CPN: 06/17/2018 14:58 DELIVERY PERSONNEL Universal Grinder Set Up Operator: Muñoz, Ashlie MATERNAL INFORMATION Delivery Anesthesia: Epidural Medications in Delivery: 30 UNITS PITOCIN Delivery QBL (ml): 150 Placenta Cultured: No Maternal Complications: None LABOR SUMMARY EDC: 06/19/2018 00:00 No. Babies in Womb: 1 Attempted: No Labor Anesthesia: Epidural LABOR INFORMATION Reason for Induction: Not Applicable Onset of Labor: 06/14/2018 19:00 Complete Dilatation: 06/15/2018 01:55 Oxytocin: N/A Group B Beta Strep: Negative Steroids Given: None Reason Steroids Not Administered: Not Applicable MEMBRANES Membranes Rupture Method: Spontaneous Rupture of Membranes: 06/15/2018 01:56 Length of Rupture (hr): 0.43 Amniotic Fluid Color: Light Meconium Amniotic Fluid Amount: Small Amniotic Fluid Odor: None STAGES OF LABOR Stage 1 hr: 6 Stage 1 min: 55 Stage 2 hr: 0 Stage 2 min: 27 Stage 3 hr: 0 Stage 3 min: 6 Total Time in Labor hr: 7 Total Time in Labor min: 28 VAGINAL DELIVERY Laceration Extension: N/A Laceration Type: None Laceration Repair: Not Applicable Initial Vag Sponge Count: 10 Final Vag Sponge Count: 10 Initial Vag Sharps Count: 1 Final Vag Sharps Count: 1 Sponge Count Correct: Yes; Vaginal Sweep Performed Sharps Count Correct: Yes BABY A INFORMATION Infant Delivery Date/Time: 06/15/2018 02:22 Method of Delivery: Vaginal Born in Route : No : N/A Forceps: N/A Vacuum Extraction: N/A Shoulder Dystocia : N/A SHOULDER DYSTOCIA BABY A Infant Delivery Date/Time: 06/15/2018 02:22 PRESENTATION/POSITION BABY A Presentation: Cephalic Cephalic Presentation: Vertex Breech Presentation: N/A PLACENTA INFORMATION BABY A Placenta Delivery Time : 06/15/2018 02:28 Placenta Method of Delivery: Expressed Placenta Status: Delivered SCORES BABY A Heart Rate 1 min: >100 bpm Resp Effort 1 min: Good Cry Reflex Irritability 1 min: Cough/Sneeze/Pulls Away Muscle Tone 1 min: Active Motion Color 1 min: Blue/Pale Resuscitation Effort 1 min: Tactile Stimulation SCORE 1 MIN: 8 Heart Rate 5 min: >100 bpm Resp Effort 5 min: Good Cry Reflex Irritability 5 min: Cough/Sneeze/Pulls Away Muscle Tone 5 min: Active Motion Color 5 min: Body [place], Extremit Blue Resuscitation Effort 5 min: Tactile Stimulation SCORE 5 MIN: 9 INFANT INFORMATION BABY A Gestational Age at Delivery: 39.3 Gestational Status: Full Term- 39- 40.6 Weeks Infant Outcome : Liveborn Infant Condition : Stable Sex: Male IDENTIFICATION/MEDS BABY A ID Band Number: [id number] ID Band Location: Right Leg; Left Arm Sensor Applied: Yes Sensor Number: [id number] Sensor Location : Cord Clamp Vitamin K Given : Not Given Erythromycin Given: Not Given WEIGHT/LENGTH BABY A Birthweight (gm): 2755 Infant Weight (lb): 6 Infant Weight (oz): 1 Infant Length (in): 18.00 Infant Length (cm): 45.72 CORD INFORMATION BABY A No. Cord Vessels: 3 Nuchal Cord : Around Neck x2, Loose Cord Blood Taken: Yes Infant Suction: Mouth; Nose ASSESSMENT BABY A Complications: None Physical Findings at Delivery: Within Normal Limits Respirations: Appears Normal Development Rep/ALS Called : No Infant Care By: ITZEL LEAVITT Transferred To: Remains with Mother
== END 2018-06-16 14:57 | disposition home or self-care (01) | DRG 807 ==
LOC: OBT 21:24 → L-D 21:30 → OBT 21:45 → L-D 21:45 → PP1 06-15 04:15
PROVIDERS: ADMIT Obstetrics & Gynecology; ATTEND Obstetrics & Gynecology
PROC: 10E0XZZ Delivery of Products of Conception, External Approach (ICD-10-PCS; principal; 2018-06-15)
DX: O69.81X0 Labor and delivery complicated by cord around neck, without compression, not applicable or unspecified (principal); Z37.0 Single live birth; Z3A.39 39 weeks gestation of pregnancy; Z23 Encounter for immunization
CPT/HCPCS: 62319; 85025; 85610; 85730; 86592; 86850; 86900; 86901; 90715; G0463; J2590; J3010; J7120